=== PATIENT | male | born 2000 | race Asian ===

== ENCOUNTER 2022-04-08 14:01 | Emergency (ER) | payer OTHER ==
[~2022-04-08] VITALS: Ht 177.8 cm; Wt 59.0 kg
[2022-04-08 14:17] VITALS: BP 111/71
== END 2022-04-08 16:45 | disposition home or self-care (01) ==
LOC: EMS 14:01
DX: H53.9 Unspecified visual disturbance (principal)
CPT/HCPCS: 99282; Z7502